=== PATIENT | male | born 1960 | race Caucasian/White ===

== ENCOUNTER 2019-01-11 18:03 | Observation (INO) | payer OTHER, BC ==
[~2019-01-11] VITALS: Ht 175.3 cm; Wt 110.0 kg
[~2019-01-11 18:03] MED LIST: ALBU3IS INH; ALBU90OI INH; ALBU90OI6 INH; ASPI325EC PO; ASPI81CH PO; ATOR40TA PO; CHOL10002 PO; DOXA4 PO; FERR325 PO; FURO20 PO; HYDCHL25 PO; LISI20 PO; OMEPRAZOLE MAGN20 MG PO; OXYC5 PO; POTCHL20ER PO; PRED20 PO; UBID100 PO; WARF2 PO; WARF5 PO; Zofran Odt4 MG SL
[2019-01-11 18:28] LABS: BASOPHILS ABSOLUTE AUTO 0.04 K/mm3 (0.00-0.23); BASOPHILS PERCENT AUTO 0 % (0-2); EOSINOPHILS ABSOLUTE AUTO 0.27 K/mm3 (0.00-0.68); EOSINOPHILS PERCENT AUTO 3 % (0-6); Hematocrit 42.8 % (37.0-53.0); Hemoglobin 14.3 g/dL (13.5-17.5); IMMATURE GRAN ABSOLUTE AUTO 0.06 K/mm3 (0.00-0.10); IMMATURE GRAN PERCENT AUTO 1 % (0-1); LYMPHOCYTES ABSOLUTE AUTO 2.07 K/mm3 (0.84-5.20); LYMPHOCYTES PERCENT AUTO 21 % (21-46); MONOCYTES ABSOLUTE AUTO 0.64 K/mm3 (0.16-1.47); MONOCYTES PERCENT AUTO 7 % (4-13); Mean Corpuscular HGB 32.4 pg (26.0-34.0); Mean Corpuscular HGB Conc 33.4 g/dL (31.5-36.5); Mean Corpuscular Volume 97 fL (80-100); Mean Platelet Volume 11.4 fL (9.1-12.4); NEUTROPHILS ABSOLUTE AUTO 6.72 K/mm3 (1.96-9.15); NEUTROPHILS PERCENT AUTO 69 % (41-73); Platelet Count 143 K/mm3 (150-400); RDW Coefficient Variation 14.1 % (11.7-14.2); RDW Standard Deviation 50.5 fL (35.1-46.3); Red Blood Cell Count 4.41 M/mm3 (4.30-5.90)
[2019-01-11 18:39] LABS: International Normalized Ratio 3.21; Prothrombin Time Results 30.6 Sec (9.7-11.5)
[2019-01-11 18:55] LABS: Albumin, Blood 3.5 g/dL (3.4-5.0); Albumin/Globulin Ratio 0.9 (0.8-1.8); Bilirubin, Total 1.2 mg/dL (0.1-1.0); Bun/Creatinine Ratio 11.7 (12.0-20.0); Calcium, Blood 8.6 mg/dL (8.5-10.1); Creatinine, Blood 1.62 mg/dL (0.60-1.20); Globulin, Blood 3.7 g/dL (2.2-4.0); Potassium, Blood 3.9 mmol/L (3.5-5.5); Total Protein, Blood 7.2 g/dL (6.4-8.2)
[2019-01-11] MEDS ORDERED: COLE625 PO (19:29)
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
--- NOTE | 2019-01-12 12:25 | NUR ---
DR HERE TO SEE PT AND DISCUSS DISCHARGE
--- NOTE | 2019-01-12 15:11 | NUR ---
DISCHARGE PT TOLERATING FOOD AND FLUIDS. PT VOIDING. PT DISCHARGED PER ORDERS. DISCHARGE INSTRUCTIONS GIVEN BY RN. IV'S D/C'D WNL. NO OTHER IVS IN PLACE. PT BELONGINGS SENT WITH PT. PT HOME WITH FAMILY IN PERSONAL VEHICLE, ESCORTED BY RN. PT REPORTS NO FURTHER QUESTIONS.
--- NOTE | 2019-01-12 15:11 | NUR ---
PT/FAMILY REPORTS UNDERSTANDING OF D/C INSTRUCTIONS. PT UP IND WITH STEADY GAIT. SEE OTHER DISCHARGE NOTE FROM STUDENT RN.
== END 2019-01-12 15:00 | disposition home or self-care (01) ==
LOC: ER 18:03 → SURS 18:04
PROVIDERS: Emergency Medicine; ADMIT Surgery
DX: S22.42XA Multiple fractures of ribs, left side, initial encounter for closed fracture (principal); I10 Essential (primary) hypertension; I25.2 Old myocardial infarction; J45.909 Unspecified asthma, uncomplicated; G47.30 Sleep apnea, unspecified; Z95.2 Presence of prosthetic heart valve; Z95.0 Presence of cardiac pacemaker; Z87.891 Personal history of nicotine dependence; Z88.0 Allergy status to penicillin; Z91.030 Bee allergy status; Z79.899 Other long term (current) drug therapy; Z79.82 Long term (current) use of aspirin; Z79.01 Long term (current) use of anticoagulants; W22.8XXA Striking against or struck by other objects, initial encounter
CPT/HCPCS: 36415; 70450; 71045; 71046; 71260; 74177; 80053; 83690; 85025; 85610; 85730; 86850; 86900; 86901; 93005; 93010; 94762; 99285-25; G0378; Q9967

== ENCOUNTER 2019-11-04 09:05 | Day surgery (SDC) | payer BC ==
[~2019-11-04] VITALS: Ht 175.3 cm; Wt 113.6 kg
[~2019-11-04 09:05] MED LIST changes: +BUDE10.22 INH; +Bumetanide1 MG PO; +COLE625 PO; +ENTRESTO 24 MG1 EACH PO; +K-Dur20 MEQ PO; +METO25ER PO
--- NOTE | 2019-11-04 13:31 | NUR ---
ATTEMPTED TO REMOVE AIR FROM TR BAND AT 1320, BLEEDING OCCURED, AIR PLACED BACK INTO TR BAND, WILL CONTINUE TO MONITOR SITE. PT DENIES PAIN. ARM BOARD ON FOR SUPPORT. CALL LIGHT WITHIN REACH.
--- NOTE | 2019-11-04 14:14 | NUR ---
TR BAND FULLY DEFLATED, REMAINS ON, SITE SOFT NON TENDER WITH NO ACTIVE BLEEDING, OOZING, OR PAIN NOTED. PT PROVIDED WITH DISCHARGE PAPERWORK, REVIEWED, VERBALIZED UNDERSTANDING. WILL CONTINUE TO MONITOR.
--- NOTE | 2019-11-04 14:44 | NUR ---
DISCHARGE GONE OVER WITH PT AND , BOTH VERBALIZE UNDERSTANDING OF INSTRUCTIONS. EDUCATED ON APPLYING PRESSURE IF BLEEDING SHOULD OCCUR. SALINE LOCK OUT WITH CATHETER INTACT. CLOTH DOT PLACED OVER LEFT RADIAL SITE. PT TO PRIVATE VEHICLE PER W/C.
== END 2019-11-04 14:45 | disposition home or self-care (01) ==
LOC: MHTC 09:05
DX: I25.10 Atherosclerotic heart disease of native coronary artery without angina pectoris (principal); I48.0 Paroxysmal atrial fibrillation; I11.0 Hypertensive heart disease with heart failure; I50.9 Heart failure, unspecified; I25.2 Old myocardial infarction; J45.909 Unspecified asthma, uncomplicated; G47.33 Obstructive sleep apnea (adult) (pediatric); E78.00 Pure hypercholesterolemia, unspecified; Z95.2 Presence of prosthetic heart valve; Z79.01 Long term (current) use of anticoagulants; Z88.0 Allergy status to penicillin; Z88.8 Allergy status to other drugs, medicaments and biological substances; Z91.030 Bee allergy status; Z79.899 Other long term (current) drug therapy; Z79.82 Long term (current) use of aspirin; Z79.51 Long term (current) use of inhaled steroids; Z95.0 Presence of cardiac pacemaker; Z99.89 Dependence on other enabling machines and devices
CPT/HCPCS: 76937; 93455; 99152; 99153; C1769; C1894; J1644; J2250; J3010; J7030; Q9967

== ENCOUNTER 2023-01-10 10:12 | Emergency (ER) | payer MEDICARE ==
[~2023-01-10] VITALS: Ht 175.3 cm; Wt 103.4 kg
[2023-01-10 12:38] LABS: International Normalized Ratio 2.86; Prothrombin Time Results 28.3 Sec (9.7-11.5)
[2023-01-10 13:27] VITALS: BP 103/64
[2023-01-10] MEDS ORDERED: HYDR1TAB94 PO (15:19)
== END 2023-01-10 13:29 | disposition home or self-care (01) ==
LOC: ER 10:12
PROVIDERS: Physician Assistant
DX: S80.12XA Contusion of left lower leg, initial encounter (principal); S80.11XA Contusion of right lower leg, initial encounter; I10 Essential (primary) hypertension; I48.91 Unspecified atrial fibrillation; Z88.0 Allergy status to penicillin; Z91.030 Bee allergy status; Z79.82 Long term (current) use of aspirin; Z79.01 Long term (current) use of anticoagulants; Z79.51 Long term (current) use of inhaled steroids; W28.XXXA Contact with powered lawn mower, initial encounter
CPT/HCPCS: 73590; 73630; 85610; A9270

== ENCOUNTER 2023-01-19 05:52 | Emergency (ER) | payer OTHER, MEDICARE ==
[~2023-01-19] VITALS: Ht 175.3 cm; Wt 104.3 kg
[~2023-01-19 05:52] MED LIST changes: +HYDR1TAB94 PO
[2023-01-19 07:29] LABS: BASOPHILS ABSOLUTE AUTO 0.04 K/mm3 (0.00-0.23); BASOPHILS PERCENT AUTO 1 % (0-2); EOSINOPHILS ABSOLUTE AUTO 0.21 K/mm3 (0.00-0.68); EOSINOPHILS PERCENT AUTO 3 % (0-6); Hematocrit 29.9 % (37.0-53.0); IMMATURE GRAN ABSOLUTE AUTO 0.03 K/mm3 (0.00-0.10); IMMATURE GRAN PERCENT AUTO 0 % (0-1); LYMPHOCYTES ABSOLUTE AUTO 1.21 K/mm3 (0.84-5.20); LYMPHOCYTES PERCENT AUTO 14 % (21-46); MONOCYTES ABSOLUTE AUTO 0.64 K/mm3 (0.16-1.47); MONOCYTES PERCENT AUTO 8 % (4-13); Mean Corpuscular HGB 32.5 pg (26.0-34.0); Mean Corpuscular HGB Conc 33.4 g/dL (31.5-36.5); Mean Corpuscular Volume 97 fL (80-100); Mean Platelet Volume 10.4 fL (9.1-12.4); NEUTROPHILS ABSOLUTE AUTO 6.25 K/mm3 (1.96-9.15); NEUTROPHILS PERCENT AUTO 75 % (41-73); Platelet Count 181 K/mm3 (150-400); RDW Coefficient Variation 13.9 % (11.7-14.2); Red Blood Cell Count 3.08 M/mm3 (4.30-5.90); White Blood Cell Count 8.38 K/mm3 (4.00-11.30)
[2023-01-19 08:05] LABS: Albumin, Blood 3.2 g/dL (3.4-5.0); Albumin/Globulin Ratio 0.8 (0.8-1.8); Bilirubin, Total 2.6 mg/dL (0.1-1.0); Bun/Creatinine Ratio 20.9 (12.0-20.0); Calcium, Blood 8.5 mg/dL (8.5-10.1); Creatinine, Blood 1.15 mg/dL (0.60-1.20); Globulin, Blood 3.8 g/dL (2.2-4.0); Potassium, Blood 4.6 mmol/L (3.5-5.5)
[2023-01-19] MEDS ORDERED: OXYACE7.5T PO (09:17)
[2023-01-19] MEDS ORDERED: CLIN300 PO (09:25)
[2023-01-19 09:45] VITALS: BP 113/66
== END 2023-01-19 10:10 | disposition home or self-care (01) ==
LOC: ER 05:52
PROVIDERS: Emergency Medicine
DX: S80.12XA Contusion of left lower leg, initial encounter (principal); S80.11XA Contusion of right lower leg, initial encounter; R60.0 Localized edema; I10 Essential (primary) hypertension; Z88.0 Allergy status to penicillin; Z91.030 Bee allergy status; Z79.82 Long term (current) use of aspirin; Z79.01 Long term (current) use of anticoagulants; V84.7XXA Person on outside of special agricultural vehicle injured in nontraffic accident, initial encounter
CPT/HCPCS: 80053; 82550; 85025; 93925; 99284-25

== ENCOUNTER 2023-04-11 02:52 | Day surgery (SDC) | payer MEDICARE ==
[~2023-04-11 02:52] MED LIST changes: +CLIN300 PO; +OXYACE7.5T PO
== END 2023-04-11 22:53 | disposition home or self-care (01) ==
LOC: WOUND 02:52
DX: L97.812 Non-pressure chronic ulcer of other part of right lower leg with fat layer exposed (principal); L97.822 Non-pressure chronic ulcer of other part of left lower leg with fat layer exposed; L97.222 Non-pressure chronic ulcer of left calf with fat layer exposed; L97.215 Non-pressure chronic ulcer of right calf with muscle involvement without evidence of necrosis; S89.92XD Unspecified injury of left lower leg, subsequent encounter; S89.91XD Unspecified injury of right lower leg, subsequent encounter; I87.2 Venous insufficiency (chronic) (peripheral); I73.9 Peripheral vascular disease, unspecified
CPT/HCPCS: A9270; G0463

== ENCOUNTER 2023-04-18 01:15 | Day surgery (SDC) | payer MEDICARE | END 2023-04-18 22:48 | disposition home or self-care (01) | LOC: WOUND 01:15 | DX: L97.922 Non-pressure chronic ulcer of unspecified part of left lower leg with fat layer exposed (principal); L97.912 Non-pressure chronic ulcer of unspecified part of right lower leg with fat layer exposed; I73.9 Peripheral vascular disease, unspecified; S81.801A Unspecified open wound, right lower leg, initial encounter; S81.802A Unspecified open wound, left lower leg, initial encounter; I87.2 Venous insufficiency (chronic) (peripheral); X58.XXXA Exposure to other specified factors, initial encounter | CPT/HCPCS: A9270 ==

== ENCOUNTER 2023-04-20 00:49 | Day surgery (SDC) | payer MEDICARE | END 2023-04-20 22:45 | disposition home or self-care (01) | LOC: WOUND 00:49 | DX: L97.222 Non-pressure chronic ulcer of left calf with fat layer exposed (principal); L97.215 Non-pressure chronic ulcer of right calf with muscle involvement without evidence of necrosis; S89.92XD Unspecified injury of left lower leg, subsequent encounter; S89.91XD Unspecified injury of right lower leg, subsequent encounter; I87.2 Venous insufficiency (chronic) (peripheral); I73.9 Peripheral vascular disease, unspecified ==

== ENCOUNTER 2023-04-25 02:04 | Day surgery (SDC) | payer MEDICARE | END 2023-04-25 23:01 | disposition home or self-care (01) | LOC: WOUND 02:04 | DX: T81.33XD Disruption of traumatic injury wound repair, subsequent encounter (principal); I87.2 Venous insufficiency (chronic) (peripheral); L97.222 Non-pressure chronic ulcer of left calf with fat layer exposed; L97.212 Non-pressure chronic ulcer of right calf with fat layer exposed; Y83.8 Other surgical procedures as the cause of abnormal reaction of the patient, or of later complication, without mention of misadventure at the time of the procedure | CPT/HCPCS: A9270 ==

== ENCOUNTER 2023-04-30 01:04 | Day surgery (SDC) | payer OTHER, MEDICARE | END 2023-04-30 22:48 | disposition home or self-care (01) | LOC: WOUND 01:04 | DX: L97.222 Non-pressure chronic ulcer of left calf with fat layer exposed (principal); L97.212 Non-pressure chronic ulcer of right calf with fat layer exposed; S89.92XD Unspecified injury of left lower leg, subsequent encounter; S89.91XD Unspecified injury of right lower leg, subsequent encounter; V89.9XXD Person injured in unspecified vehicle accident, subsequent encounter; I87.2 Venous insufficiency (chronic) (peripheral); I73.9 Peripheral vascular disease, unspecified | CPT/HCPCS: A9270 ==

== ENCOUNTER 2023-05-09 08:54 | Day surgery (SDC) | payer MEDICARE | END 2023-05-09 22:57 | disposition home or self-care (01) | LOC: WOUND 08:54 | DX: I87.2 Venous insufficiency (chronic) (peripheral) (principal); L97.812 Non-pressure chronic ulcer of other part of right lower leg with fat layer exposed; L97.822 Non-pressure chronic ulcer of other part of left lower leg with fat layer exposed; I73.9 Peripheral vascular disease, unspecified; S81.811A Laceration without foreign body, right lower leg, initial encounter; X58.XXXA Exposure to other specified factors, initial encounter | CPT/HCPCS: G0463 ==

== ENCOUNTER 2023-05-30 02:37 | Day surgery (SDC) | payer MEDICARE | END 2023-05-30 23:23 | disposition home or self-care (01) | LOC: WOUND 02:37 | DX: L97.222 Non-pressure chronic ulcer of left calf with fat layer exposed (principal); L97.215 Non-pressure chronic ulcer of right calf with muscle involvement without evidence of necrosis; S89.92XD Unspecified injury of left lower leg, subsequent encounter; S89.91XD Unspecified injury of right lower leg, subsequent encounter; X58.XXXD Exposure to other specified factors, subsequent encounter; I87.2 Venous insufficiency (chronic) (peripheral); I73.9 Peripheral vascular disease, unspecified ==

== ENCOUNTER 2023-06-06 05:02 | Day surgery (SDC) | payer MEDICARE | END 2023-06-06 23:06 | disposition home or self-care (01) | LOC: WOUND 05:02 | DX: L97.812 Non-pressure chronic ulcer of other part of right lower leg with fat layer exposed (principal); L97.822 Non-pressure chronic ulcer of other part of left lower leg with fat layer exposed; I87.2 Venous insufficiency (chronic) (peripheral); I73.9 Peripheral vascular disease, unspecified | CPT/HCPCS: G0463 ==

== ENCOUNTER 2023-06-13 02:31 | Day surgery (SDC) | payer MEDICARE | END 2023-06-13 22:50 | disposition home or self-care (01) | LOC: WOUND 02:31 | DX: L97.812 Non-pressure chronic ulcer of other part of right lower leg with fat layer exposed (principal); L97.822 Non-pressure chronic ulcer of other part of left lower leg with fat layer exposed; I87.2 Venous insufficiency (chronic) (peripheral); I73.9 Peripheral vascular disease, unspecified | CPT/HCPCS: A9270; G0463 ==

== ENCOUNTER 2023-06-20 05:00 | Day surgery (SDC) | payer MEDICARE | END 2023-06-20 23:17 | disposition home or self-care (01) | LOC: WOUND 05:00 | DX: L97.222 Non-pressure chronic ulcer of left calf with fat layer exposed (principal); S89.92XD Unspecified injury of left lower leg, subsequent encounter; S89.91XD Unspecified injury of right lower leg, subsequent encounter; X58.XXXD Exposure to other specified factors, subsequent encounter; I87.2 Venous insufficiency (chronic) (peripheral); I73.9 Peripheral vascular disease, unspecified | CPT/HCPCS: A9270; G0463 ==

== ENCOUNTER 2023-06-27 01:54 | Day surgery (SDC) | payer MEDICARE | END 2023-06-27 22:53 | disposition home or self-care (01) | LOC: WOUND 01:54 | DX: L97.812 Non-pressure chronic ulcer of other part of right lower leg with fat layer exposed (principal); L97.822 Non-pressure chronic ulcer of other part of left lower leg with fat layer exposed; I87.2 Venous insufficiency (chronic) (peripheral); I73.9 Peripheral vascular disease, unspecified | CPT/HCPCS: G0463 ==

== ENCOUNTER 2023-07-04 06:08 | Day surgery (SDC) | payer MEDICARE | END 2023-07-04 23:00 | disposition home or self-care (01) | LOC: WOUND 06:08 | DX: L97.812 Non-pressure chronic ulcer of other part of right lower leg with fat layer exposed (principal); L97.822 Non-pressure chronic ulcer of other part of left lower leg with fat layer exposed; I87.2 Venous insufficiency (chronic) (peripheral); L97.222 Non-pressure chronic ulcer of left calf with fat layer exposed; L97.215 Non-pressure chronic ulcer of right calf with muscle involvement without evidence of necrosis; S89.92XD Unspecified injury of left lower leg, subsequent encounter; S89.91XD Unspecified injury of right lower leg, subsequent encounter; I73.9 Peripheral vascular disease, unspecified | CPT/HCPCS: G0463 ==

== ENCOUNTER 2023-07-11 02:25 | Day surgery (SDC) | payer MEDICARE | END 2023-07-11 22:47 | disposition home or self-care (01) | LOC: WOUND 02:25 | DX: L97.222 Non-pressure chronic ulcer of left calf with fat layer exposed (principal); L97.215 Non-pressure chronic ulcer of right calf with muscle involvement without evidence of necrosis; I87.2 Venous insufficiency (chronic) (peripheral); I73.9 Peripheral vascular disease, unspecified | CPT/HCPCS: G0463 ==

== ENCOUNTER 2024-10-17 09:20 | Day surgery (SDC) | payer MEDICARE ==
[~2024-10-17] VITALS: Ht 175.3 cm; Wt 104.5 kg
[~2024-10-17 09:20] MED LIST changes: +CO Q10100 MG PO; +Carvedilol12.5 MG PO; +EPIPEN0.3 MG/0.3 IM; +Lactated Ringer's 1,000 ML IV SCH; +WARF1 PO; -WARF2 PO; +propofoL 20 ML IV ONE
--- NOTE | 2024-10-17 09:45 | NUR ---
AMBULATORY INTO [facility]. HISTORY AND ALLERGIES REVIEWED. HEART SOUNDS REGULARLY IRREGULAR. PT HAS PPM. PT DENIES CP OR SOB. LUNGS CLEAR. NPO STATUS CONFIRMED. COLON PREP CONFIRMED CLEAR, YELLOW. PT RIDE HOME IS HIS
[2024-10-17 09:48] VITALS: BP 114/77
--- NOTE | 2024-10-17 10:15 | NUR ---
10/17/24 1015 Sotero Fuentes History, Chart, Medications and Allergies reviewed before start of procedure. MONITOR INTACT WITH CONTINUOUS PULSE OXIMETRY, CONTINUOUS END TITAL CO2, 3-LEAD EKG AND INTERMITTENT BLOOD PRESSURE. 3-LEAD EKG REVIEWED WITH PHYSICIAN PRIOR TO START OF PROCEDURE. O2 VIA POM INTACT THROUGHOUT SEDATION/PROCEDURE.
[2024-10-17 10:35] VITALS: BP 95/63
[2024-10-17 10:43] VITALS: BP 98/72
--- NOTE | 2024-10-17 11:57 | NUR ---
Discharge instructions reviewed with patient. Patient verbalizes understanding. Copy given to patient to take home. Discharged via wheelchair to private car for ride home.
== END 2024-10-17 11:05 | disposition home or self-care (01) ==
LOC: ORSCMMR 09:20 → ORD 10:15 → ORSCMMR 11:05
PROVIDERS: Surgery
PROC: 0DJD8ZZ Inspection of Lower Intestinal Tract, Via Natural or Artificial Opening Endoscopic (ICD-10-PCS; principal; 2024-10-17 10:15)
DX: Z12.11 Encounter for screening for malignant neoplasm of colon (principal); D12.1 Benign neoplasm of appendix; K64.0 First degree hemorrhoids; J45.909 Unspecified asthma, uncomplicated; I10 Essential (primary) hypertension; Z95.0 Presence of cardiac pacemaker; I27.20 Pulmonary hypertension, unspecified; G47.33 Obstructive sleep apnea (adult) (pediatric); E78.5 Hyperlipidemia, unspecified; I25.10 Atherosclerotic heart disease of native coronary artery without angina pectoris; E66.9 Obesity, unspecified; Z68.34 Body mass index [BMI] 34.0-34.9, adult; Z79.82 Long term (current) use of aspirin; Z79.01 Long term (current) use of anticoagulants; Z79.899 Other long term (current) drug therapy
CPT/HCPCS: 88305; J2704; J7120